=== PATIENT | male | born 1975 | race Caucasian/White ===

== ENCOUNTER 2023-09-13 15:53 | Emergency (ER) | payer MEDICARE, MEDICAID, SELFPAY ==
[2023-09-13 15:53] VITALS: BP 140/88; PULSE 98; RESP 17; TEMP 36.9; O2SAT 97; BMI 28.8
--- NOTE | 2023-09-13 16:25 | ED.VIS.BACK ---
HPI History of Present Illness Chief Complaint: Back Informant: patient Onset/Context/Timing Onset: Yesterday Context: Gradual Onset Chronic pain exacerbated by: Laying on the floor Timing: Continuous Quality: Sharp and - (Pressure) Location: Lumbar, Buttock, Right Leg and Left Leg Worsened by: improves with Ambulation Relieved by: Nothing Associated Symptoms Associated Symptoms: Numbness, Tingling, Radiation to Right Leg and Radiation to Left Leg; Negative for Fever, Abdominal Pain, Dysuria, Unable to Ambulate, Unable to Transfer, Urinary Retention, Urinary Incontinence, Constipation or Fecal Incontinence Narrative Narrative: Patient presents with back pain that began yesterday. Patient has a history of chronic back pain. Patient states he sees pain management in [place]. Patient states he got into an argument with his girlfriend and stated his brother's house. Patient states that he had to sleep on the floor while he was there. Patient states he woke up yesterday morning and the pain was in his back. Patient states it has been constant. Patient describes the pain as sharp and pressure. Patient states the pain is over the lower lumbar area and radiates into his hips and proximal thighs. Patient states it is worse with ambulation. Patient admits to some numbness and tingling into his feet. Patient states this is chronic. Patient denies any bowel or bladder changes. Patient denies any saddle anesthesia. [facility] Medical History Major depressive disorder Generalized anxiety disorder PTSD (post-traumatic stress disorder) History of open sigmoidectomy Herniated disc Diverticulitis Allergy/AdvReac Type Severity Reaction Status Date / Time No Known Allergies Allergy Verified 09/13/23 15:54 Surgical History History of cholecystectomy Social History Smoking Status: Current every day smoker tobacco type: cigarettes ROS ROS ED Constitutional Constitutional ED: Denies chills or fever(s) Eyes Eyes: Denies blurry vision or change in vision ENT ENT ED: Denies rhinorrhea or sore throat Cardiovascular Cardiovascular: Denies chest pain or palpitations Respiratory/Chest Respiratory/Chest: Denies cough or dyspnea Gastrointestinal Gastrointestinal: Denies nausea or vomiting Genitourinary Genitourinary ED: Denies dysuria or hematuria Musculoskeletal Musculoskeletal: Reports back pain; Denies neck pain Integumentary Denies abscess or rash Neurologic Neurologic: Denies headache(s) or weakness Allergic/Immunologic Allergic/Immunologic ED: Denies mouth swelling or urticaria EXAM Physical Exam Const Vital Signs: 09/13/23 15:53 Temperature 98.4 F Temperature Source Temporal Pulse Rate 98 Respiratory Rate 17 Blood Pressure 140/88 H Blood Pressure Mean 105 Pulse Ox 97 Oxygen Delivery Method Room Air Positive well nourished and well developed General Appearance ED: well developed and NAD HEENT Reports moist mucous membranes Neck supple and no JVD Back/Spine Back/Spine Narrative: There is tenderness over the lower lumbar spine and paraspinal muscles. There is no bony crepitance or step-off noted. Range of motion was limited in all motions of the lumbar spine secondary to pain. Straight leg raises were negative bilaterally. Strength is 5/5 bilateral in the lower extremities. There are no sensory deficits noted. Lumbar Spine / Lower Back: ROM limited and straight leg raise negative bilaterally Extremity normal to inspection Neuro oriented x3 and no sensory deficits noted Sensorium / Orientation: alert Motor Exam: strength 5/5 throughout Psych mental status grossly normal MDM MDM MDM Narrative Medical decision making narrative: Patient was advised that this is most likely exacerbation of his chronic pain. Patient was given injection of morphine here. Patient was instructed to follow-up with his pain management physician in 3 to 5 days. Patient was instructed to return if worse in any way. Patient understood and was agreeable with the plan. All questions were answered. Discharge Plan Triage Chief Complaint: Back ED Provider: Korey Monet Dx/Rx/DC Orders Clinical Impression: Acute exacerbation of chronic low back pain, Tobacco use disorder Instructions: ED Back Pain (Acute or Chronic) Primary Care Provider: Kendra Nicole,Out of Referrals: Kendra Nicole,Out of [Primary Care Provider] - 3-5 Days Print Language: Uzbek Disposition Disposition: Home, Self Care
[2023-09-13] MEDS: Morphine 4 MG/ML Syringe IM (16:40)
[2023-09-13] MEDS: predniSONE 20 MG Tablet 60 MG PO (16:41)
--- NOTE | 2023-09-13 16:47 | ED.RN ---
PT STATES NOT SURE IF HE CAN SIT AT SIDE OF BED FOR IM INJECTION. PT HELPED TO SIDE OF BED. PT REQUESTED STEROIDS TO ALSO BE GIVEN. ORDER RECEIVED FOR PREDNISONE 60 MG. THIS RN LEAVES ROOM SHE INSTRUCTS PT THAT RIDE MUST BE PRESENT IN THE ROOM. PT REQUESTS PERCOCET FOR HOME USE. PT TOLD HE NEEDS TO FOLLOW UP WITH PAIN MANAGEMENT PHYSICIAN FOR THAT. UPON LEAVING ROOM PT OBSERVED UP IN THE ROOM, WALKING AND BENDING OVER TO DONOR TECHNICIAN BELONGINGS.PT NOT USING CANE. PT COMES TO HALLWAY TO USE BATHROOM AND IS OBSERVED WALKING WITH CANE WITH DIFFICULTY
[2023-09-13 17:02] VITALS: BP 138/78; PULSE 81; RESP 14; TEMP 36.6; O2SAT 99
== END 2023-09-13 17:03 | disposition home or self-care (01) ==
PROVIDERS: Emergency Provider Emergency Medicine; PCP Family Medicine; Visit Provider Emergency Medicine
DX: G89.29 Other chronic pain (principal); M54.50 Low back pain, unspecified; F17.210 Nicotine dependence, cigarettes, uncomplicated; Z90.49 Acquired absence of other specified parts of digestive tract
CPT/HCPCS: 96372; 99282

== ENCOUNTER 2023-09-28 12:26 | Emergency (ER) | payer MEDICARE, MEDICAID, SELFPAY ==
[2023-09-28 12:27] VITALS: BP 131/91; PULSE 94; RESP 16; TEMP 35.8; O2SAT 100; O2SAT 92
[2023-09-28 12:29] VITALS: BMI 28.8
--- NOTE | 2023-09-28 12:47 | CT_ITS ---
INDICATION: Pain- PLEASE COMMENT ON LUMBAR SPINE. EXAMINATION: CT ABDOMEN AND PELVIS WITHOUT CONTRAST - CT Abdomen And Pelvis W/O Contrast Injection TECHNIQUE: Helically acquired images were obtained of the abdomen and pelvis without oral or IV contrast. The protocol utilizes one or more of the following dose reduction techniques: automated exposure control, adjustment of mA and/or kV according to patient size,and/or use of iterative reconstruction technique. IV Contrast dosage and agent: None. Oral contrast: None. RADIATION DOSAGE (If Supplied By Facility): CTDIvol = ( 10.59 ) mGy, DLP = ( 558.05 ) mGycm COMPARISON: No relevant prior comparison study available FINDINGS: LOWER CHEST: Lung bases are clear. No cardiomegaly or pericardial effusion. The lack of intravenous contrast limits evaluation of solid visceral organs. LIVER: The liver is diffusely low in attenuation consistent with fatty infiltration. There is hepatomegaly. No focal mass. GALLBLADDER AND BILIARY TREE: There are surgical clips within the gallbladder fossa consistent with prior cholecystectomy. No intra- or extrahepatic biliary ductal dilation. PANCREAS: No focal cystic or solid mass. SPLEEN: There is splenomegaly. ADRENAL GLANDS: No nodules. KIDNEYS AND URETERS: Normal renal size and position. There are nonobstructing bilateral renal calculi measuring up to 4 mm on the left. No hydronephrosis. PERITONEUM: No ascites or free air. No other fluid collection. BOWEL: No evidence of acute appendicitis. No stomach or bowel distension. There are diverticula arising from the colon. There are postsurgical changes of the sigmoid colon. No focal inflammatory change. LYMPH NODES: No enlarged mesenteric or retroperitoneal lymph nodes. VESSELS: Aorta is non-dilated. There are peripheral calcifications of the abdominal aorta. URINARY BLADDER: Unremarkable. REPRODUCTIVE ORGANS: No pelvic masses. ABDOMINAL WALL: There are postsurgical changes of the anterior abdominal wall. BONES: There is a round sclerotic focus within the L4 vertebral body. The lumbar vertebral body heights are preserved. The alignment is within normal limits. No acute fracture nor dislocation is visualized. CT/Abdomen/Pelvis without Cont IMPRESSION: Fatty infiltration of the liver. Hepatosplenomegaly. Bilateral nonobstructing renal calculi measuring up to 4 mm on the left. Colonic diverticulosis. Indeterminant sclerotic focus within the L4 vertebral body, may reflect a bone island; if there is a history of malignancy or focal pain recommend bone scan for further characterization. Electronically Signed: Estefany Gomez MD at 13:47 EDT ,
[2023-09-28] MEDS: Ketorolac 15 MG/ML Vial IV (13:04)
[2023-09-28] MEDS: HYDROmorphone 1 MG/ML Syringe 0.5 MG IV (13:04)
[2023-09-28] MEDS: Ondansetron 4 MG/2 ML Vial IV (13:04)
[2023-09-28] MEDS: 0.9% Normal Saline (1000mL) 1,000 ML 999 ML IV (13:05)
--- NOTE | 2023-09-28 13:11 | EX.ED.DYSGE1 ---
HPI <DOREEN Ahn - Last Filed: 09/28/23 14:15> History of Present Illness Chief Complaint: Back Narrative Narrative: Patient is a 48-year-old male with history of chronic back pain chronic neck pain, hypertension who presents to the emergency department for acute on chronic back pain. He was seen here on the for something similar, the exacerbation started when he laid on his brother's floor to sleep. Patient sees Dr. Devlin in pain management [place] secondary to living out that way, he recently moved here 1 month ago. Patient states that he had a ultrasound-guided ablation on 09/18/2023, this did happen 18 months ago and he got improvement however this time he did not have improvement. Patient states the pain is getting worse, she is having difficulty denies any fever or chills, [place] any bowel or bladder incontinence. <Dr. Sharan Silveira DO - Last Filed: 09/28/23 14:51> Narrative Narrative: Patient is a 48-year-old male with history of chronic back pain chronic neck pain, hypertension who presents to the emergency department for acute on chronic back pain. He was seen here on the for something similar, the exacerbation started when he laid on his brother's floor to sleep. Patient sees Dr. Devlin in pain management [place] secondary to living out that way, he recently moved here 1 month ago. Patient states that he had a ultrasound-guided ablation on 09/18/2023, this did happen 18 months ago and he got improvement however this time he did not have improvement. Patient states the pain is getting worse, she is having difficulty denies any fever or chills, denies any bowel or bladder incontinence. PFSH <DOREEN Ahn - Last Filed: 09/28/23 14:15> [facility] Medical History Major depressive disorder Generalized anxiety disorder PTSD (post-traumatic stress disorder) History of open sigmoidectomy Herniated disc Diverticulitis Allergy/AdvReac Type Severity Reaction Status Date / Time No Known Allergies Allergy Verified 09/28/23 12:27 Surgical History History of cholecystectomy Social History Smoking Status: Current every day smoker tobacco type: cigarettes ROS <DOREEN Ahn - Last Filed: 09/28/23 14:15> ROS ED ROS Narrative Constitutional: Negative for fever, chills, weight loss, weakness Eyes: Negative for vision loss, vision change, double vision ENT: Negative for any sore throat, ear pain, congestion Cardiovascular: Negative for any chest pain, tightness, palpitations Respiratory: Negative for any cough, sputum production, hemoptysis, dyspnea, dyspnea on exertion, orthopnea Gastrointestinal: Negative for any abdominal pain, nausea, vomiting, diarrhea, constipation, blood in stool, blood in vomit : Negative for any urinary frequency, dysuria, retention, blood in urine Muscle skeletal: Negative for any neck pain. Positive chronic back pain, worsening with bending, ambulating Neurological: Negative for any headache, syncope, dizziness Skin: Negative for any rashes, itching, abrasions, lacerations Psychiatric: Negative for any depression, anxiety, stress, suicidal ideation, homicidal ideation Hematologic: Negative for any excessive bruising, easy bleeding EXAM <DOREEN Ahn - Last Filed: 09/28/23 14:15> Physical Exam Narrative Exam Narrative: Vital signs reviewed. Patient at rest does not appear to be in any discomfort. Patient had his legs crossed. HEET: Head normocephalic atraumatic, TMs clear bilaterally. Posterior pharynx is clear, moist mucous membranes. Nares clear bilaterally. Neck: Supple with no lymphadenopathy or tenderness. No signs of meningismus. Cardiac: Regular rate and rhythm no murmurs gallops or rubs, equal peripheral pulses bilaterally. Respiratory: Lungs clear to auscultation bilaterally. No chest tenderness. Abdomen: Soft, nontender, nondistended. No abdominal bruit or pulsatile masses. No hepatosplenomegaly Extremities: No peripheral edema, no signs of gross trauma or deformity. Active full range of motion of all extremities. Patient was ambulatory with a cane. Equal strength bilateral lower extremities. Most the pain comes up with sitting up and turning. Pain to the lower lumbar spine. This is where the pain is most the time. He says every now and then does get shooting down to his legs. Neuro: Cranial nerves II through XII intact, no focal neurological deficits. Skin: Clean dry and intact with no rash, purpura, petechiae, vesicles or pustules. Backs/flank: No CVA tenderness, no midline spinal tenderness, no deformity. Psych: Normal mood and affect. No SI, HI or acute psychosis. Const Vital Signs: 09/28/23 12:27 09/28/23 12:27 09/28/23 14:00 Temperature 96.5 F L 98.6 F Temperature Source Temporal Pulse Rate 94 94 64 Respiratory Rate 16 16 18 Blood Pressure 131/91 H 131/91 H 124/78 H Blood Pressure Mean 104 104 93 Pulse Ox 92 100 99 Oxygen Delivery Method Room Air Room Air <Dr. Sharan Silveira DO - Last Filed: 09/28/23 14:51> Physical Exam Const Vital Signs: 09/28/23 12:27 09/28/23 12:27 09/28/23 14:00 Temperature 96.5 F L 98.6 F Temperature Source Temporal Pulse Rate 94 94 64 Respiratory Rate 16 16 18 Blood Pressure 131/91 H 131/91 H 124/78 H Blood Pressure Mean 104 104 93 Pulse Ox 92 100 99 Oxygen Delivery Method Room Air Room Air [facility] <DOREEN Ahn - Last Filed: 09/28/23 14:15> [facility] Lab Data Labs: Laboratory Results - last 24 hr 09/28/23 13:13 WBC 12.4 H RBC 4.82 Hgb 16.1 Hct 46.9 MCV 97.3 H MCH 33.4 H MCHC 34.3 RDW Std Deviation 45.5 H RDW Coeff of Rachel 12.8 Plt Count 166 MPV 11.0 Immature Gran % (Auto) 2.700 H Neut % (Auto) 75.7 H Lymph % (Auto) 13.5 L Hettinger % (Auto) 6.6 Eos % (Auto) 0.4 Baso % (Auto) 1.1 H Absolute Neuts (auto) 9.4 H Absolute Lymphs (auto) 1.68 Nucleated RBC % 0 Sodium 139 Potassium 3.6 Chloride 109 H Carbon Dioxide 23.0 Anion Gap 7 BUN 10 Creatinine 1.09 Estim Creat Clear Calc 95.89 Est GFR (MDRD) Af Amer 93 Est GFR (MDRD) Non-Af 76 BUN/Creatinine Ratio 9.2 L Glucose 129 H Calcium 8.8 Urine Color Yellow Urine Clarity Clear Urine pH 6.0 Ur Specific [place] 1.020 Urine Protein 15 H Urine Glucose (UA) Normal Urine Ketones Negative Urine Occult Blood 10 H Urine Nitrite Negative Urine Bilirubin Negative Urine Urobilinogen 1 H Ur Leukocyte Esterase 25 H Urine RBC 0 SEEN Urine WBC 0 SEEN Ur Squamous Epith Cells 0 SEEN Urine Bacteria RARE Urine Mucus 0 SEEN Radiography Diagnostic Testing: Clinical Impression(s) from Imaging Studies Abdomen/Pelvis CT 09/28/23 12:47 IMPRESSION: Fatty infiltration of the liver. Hepatosplenomegaly. Bilateral nonobstructing renal calculi measuring up to 4 mm on the left. Colonic diverticulosis. Indeterminant sclerotic focus within the L4 vertebral body, may reflect a bone island; if there is a history of malignancy or focal pain recommend bone scan for further characterization. Electronically Signed: Estefany Gomez MD at 13:47 EDT , Treatment and Re-Evaluation :: Differential diagnosis includes however is not limited to: Cauda equina, spinal abscess, acute on chronic back pain, worsening protrusion of the lumbar disc, lumbar strain Patient appears to be in no obvious respiratory distress vital signs are stable, patient is nontoxic-appearing. I spoke with the patient at length. The patient would like more workup today. He was seen here 15 days ago only receiving pain medicine. Patient states he like some laboratory work he is also concerned about his abdomen, he does have history of kidney stones and he is wondering what could cause this pain. Patient will receive IV fluids, Toradol and Zofran and 0.[address] scan of the ab pelvis out contrast. Laboratory eval as well as urinalysis. He will be reevaluated. All radiologic examinations were read, reviewed by the emergency department attending. From these reads, a plan of care will be put in place. Patient has no fever or chills. Patient's pain has been ongoing, is not worse since the procedure. Patient CBC shows a slight leukocytosis white blood 12.4. Patient's chemistries were unremarkable, patient CT scan of the abdomen pelvis shows nonobstructing kidney stones, colonic diverticulosis, indeterminate sclerotic focus within the L4 vertebral body. They reflect a bony island. At this time, I do believe the patient stable for discharge. Patient be given a dose of Percocet and will follow-up outpatient with his painter and body mechanic apprentice. He is happy with the plan of care, all questions were answered, stable for discharge. <Dr. hSaran Silveira, DO - Last Filed: 09/28/23 14:51> [facility] Lab Data Labs: Laboratory Results - last 24 hr 09/28/23 13:13 WBC 12.4 H RBC 4.82 Hgb 16.1 Hct 46.9 MCV 97.3 H MCH 33.4 H MCHC 34.3 RDW Std Deviation 45.5 H RDW Coeff of Rachel 12.8 Plt Count 166 MPV 11.0 Immature Gran % (Auto) 2.700 H Neut % (Auto) 75.7 H Lymph % (Auto) 13.5 L [place] % (Auto) 6.6 Eos % (Auto) 0.4 Baso % (Auto) 1.1 H Absolute Neuts (auto) 9.4 H Absolute Lymphs (auto) 1.68 Nucleated RBC % 0 Sodium 139 Potassium 3.6 Chloride 109 H Carbon Dioxide 23.0 Anion Gap 7 BUN 10 Creatinine 1.09 Estim Creat Clear Calc 95.89 Est GFR (MDRD) Af Amer 93 Est GFR (MDRD) Non-Af 76 BUN/Creatinine Ratio 9.2 L Glucose 129 H Calcium 8.8 Urine Color Yellow Urine Clarity Clear Urine pH 6.0 Ur Specific [place] 1.020 Urine Protein 15 H Urine Glucose (UA) Normal Urine Ketones Negative Urine Occult Blood 10 H Urine Nitrite Negative Urine Bilirubin Negative Urine Urobilinogen 1 H Ur Leukocyte Esterase 25 H Urine RBC 0 SEEN Urine WBC 0 SEEN Ur Squamous Epith Cells 0 SEEN Urine Bacteria RARE Urine Mucus 0 SEEN Radiography Diagnostic Testing: Clinical Impression(s) from Imaging Studies Abdomen/Pelvis CT 09/28/23 12:47 IMPRESSION: Fatty infiltration of the liver. Hepatosplenomegaly. Bilateral nonobstructing renal calculi measuring up to 4 mm on the left. Colonic diverticulosis. Indeterminant sclerotic focus within the L4 vertebral body, may reflect a bone island; if there is a history of malignancy or focal pain recommend bone scan for further characterization. Electronically Signed: Estefany Gomez MD at 13:47 EDT , Treatment and Re-Evaluation :: Differential diagnosis includes however is not limited to: Cauda equina, spinal abscess, acute on chronic back pain, worsening protrusion of the lumbar disc, lumbar strain Patient appears to be in no obvious respiratory distress vital signs are stable, patient is nontoxic-appearing. I spoke with the patient at length. The patient would like more workup today. He was seen here 15 days ago only receiving pain medicine. Patient states he like some laboratory work he is also concerned about his abdomen, he does have history of kidney stones and he is wondering what could cause this pain. Patient will receive IV fluids, Toradol and Zofran and 0.[address] scan of the ab pelvis out contrast. Laboratory eval as well as urinalysis. He will be reevaluated. All radiologic examinations were read, reviewed by the emergency department attending. From these reads, a plan of care will be put in place. Patient has no fever or chills. Patient's pain has been ongoing, is not worse since the procedure. Patient CBC shows a slight leukocytosis white blood 12.4. Patient's chemistries were unremarkable, patient CT scan of the abdomen pelvis shows nonobstructing kidney stones, colonic diverticulosis, indeterminate sclerotic focus within the L4 vertebral body. They reflect a bony island. At this time, I do believe the patient stable for discharge. Patient be given a dose of Percocet and will follow-up outpatient with his painter and body mechanic apprentice. He is happy with the plan of care, all questions were answered, stable for discharge. This patient was seen with a PA/PSYCHOLOGY LECTURER Individually assessed they patient including history and physical. I have reviewed everything on the chart that is available and agree with the documentation provided by the PA/PSYCHOLOGY LECTURER including discussion about the assessment, treatment plan, discussion, and return precautions. 28-year-old male presenting with back pain. This is acute on chronic. I do not believe he has any symptoms consistent with cauda equina syndrome or infectious etiology. Parent states he was in a verbal altercation with his girlfriend and was trying to be escalated so he went to his brother's house where he slept on the floor. He states this is what exacerbated this pain. Patient does have a pain management physician that he sees (Dr. Jimenez) patient medicated with IV fluids, Toradol, Dilaudid. He is concerned about this not being primarily spinal problem as he has history of diverticulitis and surgeries in the past. He wants to make sure he does not a kidney stone as well. Lab work was obtained and he has a slight leukocytosis 12.4 however the rest of his labs look normal. Discussed with patient at length I recommendation to follow-up with his pain management physician. Prior he was given oxycodone prior to discharge. He will follow-up with his pain management physician. Discharge Plan Triage Chief Complaint: Back ED Midlevel Provider: Blanco Cotter ED Provider: Sharan Silveira Dx/Rx/DC Orders Clinical Impression: Acute exacerbation of chronic low back pain Instructions: Back Basics: A Healthy Spine, Understanding Chronic Pain Primary Care Provider: Yovany Lawson Referrals: Yovany Lawson MD [Primary Care Provider] - Activity Restrictions/Additional Instructions: Please follow-up with your painter and body mechanic apprentice Print Language: Welsh Disposition Disposition: Home, Self Care Discharge Date/Time: 09/28/23 14:24
[2023-09-28 13:18] LABS: Mucous, Urine 0 SEEN /hpf (<or=2+); Red Blood Cells-Urine 0 SEEN /hpf (0-5); Squamous Epithelial Cells - UA 0 SEEN /hpf (0-5); White Blood Cells 0 SEEN /hpf (0-5)
[2023-09-28 13:21] LABS: Absolute Lymphocyte Count 1.68 X10^3/uL (0.83-4.51); Absolute Neutrophil Count 9.4 X10^3/uL (2.0-7.7); Basophil# 0.14 X10^3/uL; Basophil% 1.1 % (0-1); Color, Urine Yellow (Yellow); Eosinophil# 0.05 X10^3/uL; Eosinophils% 0.4 % (0-5); Glucose, Dipstick Normal (Normal); Hematocrit 46.9 % (40-54); Hemoglobin 16.1 g/dL (13.0-16.5); Ketone-Dipstick Negative (Negative); Leukocyte Esterase-Dipstick 25 /ul (Negative); Lymphocyte # 1.68 X10^3/ul (0.83-4.51); Lymphocyte % 13.5 % (19-41); Mean Corp Hgb Conc 34.3 g/dL (32-36); Mean Corpuscular Hgb 33.4 pg (27.0-32.0); Mean Corpuscular Volume 97.3 fL (80-94); Monocyte# 0.82 X10^3/uL; Monocyte% 6.6 % (0-10); NRBC Flagged by Analyzer 0 % (0-5); Neutrophil # 9.37 X10^3/uL (2.7-7.7); Neutrophil % 75.7 % (47-70); Nitrite-Dipstick Negative (Negative); Occult Blood-Urine 10 /ul (Negative); Platelet Count 166 K/mm3 (150-450); Protein-Dipstick 15 mg/dl (Negative); RBC Distribution Width CV 12.8 % (11.6-14.6); RBC Distribution Width SD 45.5 fl (35.1-43.9); Red Blood Count 4.82 M/mm3 (4.6-6.2); Urine Bilirubin Dipstick Negative (Negative); Urine Clarity Clear (Clear); Urine Urobilinogen 1 mg/dl (Normal); White Blood Count 12.4 K/mm3 (4.4-11.0)
[2023-09-28 13:28] LABS: Bacteria RARE /hpf (None Seen)
[2023-09-28 13:32] LABS: Anion Gap 7 (5-15); BUN 10 mg/dL (7-18); BUN/Creat Ratio 9.2 RATIO (10-20); Calcium,Total 8.8 mg/dL (8.5-10.1); Chloride 109 mmol/L (98-107); Creatinine, Serum 1.09 mg/dL (0.70-1.30); EST Glomerular Filtration Rate 76 mL/min (>60); Est Glom Filt Rate - Afr Amer 93 mL/min (>60); Estimated Creatinine Clearance 95.89 ml/min; Glucose 129 mg/dL (74-106); Potassium 3.6 mmol/L (3.5-5.1); Sodium Level 139 mmol/L (136-145)
[2023-09-28 14:00] VITALS: BP 124/78; PULSE 64; RESP 18; TEMP 37; O2SAT 99
[2023-09-28] MEDS: oxyCODONE 5 MG Tablet PO (14:22)
== END 2023-09-28 14:24 | disposition home or self-care (01) ==
PROVIDERS: Nurse Practitioner; Emergency Provider Student in an Organized Health Care Education/Training Program; PCP Family Medicine; Visit Provider Student in an Organized Health Care Education/Training Program
DX: M54.50 Low back pain, unspecified (principal); I10 Essential (primary) hypertension; F17.210 Nicotine dependence, cigarettes, uncomplicated; G89.29 Other chronic pain
CPT/HCPCS: 74176; 80048; 81001; 85025; 99284; J7030; A4216; J2405

== ENCOUNTER 2023-11-19 21:05 | Observation (INO) | payer MEDICARE, MEDICAID, SELFPAY ==
[2023-11-19 21:07] VITALS: BP 99/63; PULSE 102; RESP 18; TEMP 36.9; O2SAT 95; BMI 27.8
--- NOTE | 2023-11-19 22:13 | CT_ITS ---
EXAM: CT HEAD WITHOUT INTRAVENOUS CONTRAST CLINICAL INDICATION: Slurred speech TECHNIQUE: Multiple axial images were obtained of the head without intravenous contrast. This CT exam was performed using one or more of the following dose reduction techniques: automated exposure control, adjustment of the mA and/or kV according to patient size, and/or use of iterative reconstruction technique. COMPARISON: No relevant prior studies available. FINDINGS: BRAIN AND EXTRA-AXIAL SPACES: No significant abnormality. No intra- or extra-axial hemorrhage. No evidence of acute infarct. No intracranial mass or mass effect. There is preservation of the colón/white matter interface. Ventricles are appropriate for age. Basal cisterns are patent. BONES/JOINTS: No significant abnormality. No discrete lytic or blastic abnormalities. SINUSES: No significant findings. MASTOID AIR CELLS: No significant effusion. ORBITS: No acute findings. CT/Brain/Head without Contrast IMPRESSION: Negative head/brain CT without intravenous contrast. Electronically Signed: Jack Almaguer DO at 23:30 EDT ,
--- NOTE | 2023-11-19 22:13 | EKG12_ITS ---
Test Reason : GEN ILL Blood Pressure : / mmHG Vent. Rate : 084 BPM Atrial Rate : 084 BPM P-R Int : 202 ms QRS Dur : 106 ms QT Int : 368 ms P-R-T Axes : 039 036 034 degrees QTc Int : 434 ms Normal sinus rhythm Normal ECG Confirmed by ANASTACIO BENITEZ, YU ([id number]), content editor SAMIA GOLDSTEIN ([id number]) on 11/21/2023 6:49:58 AM Referred By: Confirmed By:JUANY CHAVES MD
--- NOTE | 2023-11-19 22:15 | EX.ED.DYSGE1 ---
HPI History of Present Illness Chief Complaint: General Illness Narrative Narrative: 48-year-old male presents with slurred speech and drowsiness since 830 this evening. He is near syncopal. According to his significant other, he has chronic back pain and is on a Duragesic patch as well as takes medical marijuana. Around 830 this evening she thought that he told her to call the ambulance. He started slurring his speech and feeling very drowsy and was near syncopal. She wanted to take him to the hospital, but he was refusing. He denies any headache, no paresthesias, no other symptoms. No recent nausea or vomiting, no diarrhea. No fevers or chills. When this continued, she called the ambulance and he presents because of the slurred speech and drowsiness. [facility] Medical History Major depressive disorder Generalized anxiety disorder PTSD (post-traumatic stress disorder) History of open sigmoidectomy Herniated disc Diverticulitis Home Medications ?Medication ?Instructions ?Recorded ?Last Taken ?Type buprenorphine 5 mcg/hour weekly 1 patch topical QWEEK 11/20/23 Unknown History transdermal patch (Butrans) fenofibrate 160 mg tablet 160 mg PO DAILY 11/20/23 Unknown History fluoxetine 20 mg capsule 20 mg PO DAILY 11/20/23 Unknown History omeprazole 40 mg capsule,delayed 40 mg PO DAILY 11/20/23 Unknown History release ondansetron HCl 4 mg tablet 4 mg PO DAILY PRN nausea 11/20/23 Unknown History quetiapine 100 mg tablet 100 mg PO QHS 11/20/23 Unknown History quetiapine 25 mg tablet 25 mg PO QHS 11/20/23 Unknown History tamsulosin 0.4 mg capsule 0.4 mg PO DAILY 11/20/23 Unknown History Allergy/AdvReac Type Severity Reaction Status Date / Time No Known Allergies Allergy Verified 11/19/23 21:09 Surgical History History of cholecystectomy Social History household members: family 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 HEENT: No sore throat. No neck pain. No loss of vision. No rhinorrhea. Cardiovascular: No chest pain. No palpitations. No pedal edema. Respiratory: No cough, no shortness of breath. Abdominal: No abdominal pain. No nausea. No vomiting. Genitourinary: No dysuria. No hematuria. Musculoskeletal: No myalgias. No arthralgias. Neurologic: No headaches. No dizziness. No lightheadedness. Slurred speech. Drowsiness. Skin: No rash. No change in color. Psychiatric: No depression. No anxiety. EXAM Physical Exam Narrative Exam Narrative: Afebrile. Vital signs noted. HEENT: Normocephalic. Atraumatic. PERRL, EOMI. Neck soft and supple. No point tenderness or step off. Positive dry mouth. Cardiovascular: Regular rate and rhythm. No murmurs, rubs, or gallops appreciated. Respiratory: No tachypnea. Lungs clear to auscultation bilaterally. Gastrointestinal: Abdomen soft, nontender, with normoactive bowel sounds. No rebound or guarding. Neurological: Awake. Alert. Nonfocal, nonlateralizing. NIH stroke scale of 1 for mild slurred speech. Skin: No rash. Normal color. No pallor. Musculoskeletal: No pedal edema. Full range of motion extremities. Const Vital Signs: 11/19/23 21:07 11/19/23 21:38 11/19/23 23:07 Temperature 98.4 F Temperature Source Temporal Pulse Rate 102 H Respiratory Rate 18 16 Respiratory Effort Normal Respiratory Pattern Normal Blood Pressure 99/63 Blood Pressure Mean 75 Pulse Ox 95 Oxygen Delivery Method Room Air 11/20/23 00:32 11/20/23 01:00 Temperature 97.8 F Temperature Source Pulse Rate 79 69 Respiratory Rate 18 18 Respiratory Effort Respiratory Pattern Blood Pressure 96/71 91/70 Blood Pressure Mean 79 77 Pulse Ox 94 95 Oxygen Delivery Method Room Air MDM MDM MDM Narrative Medical decision making narrative: I do not feel that stroke team is indicated, as I think that this may be more medication side effect which is also in the differential. His exam is otherwise nonfocal. CT of the brain will be obtained as well as basic laboratory work and urine drug screen. As I think this is more medication side effect, I do not feel that stroke team needs to be initiated. Additionally, he is not a TNK candidate because I do not feel he has a debilitating deficit. I reviewed his laboratory work and he has normal white count of 6.9, hemoglobin normal at 15.1, hematocrit 44.0, platelet count 190. Electrolyte panel shows chloride elevated at 109 which I think is nonspecific, normal BUN of 9 and creatinine 1.26, glucose appropriately elevated at 121 with normal anion gap of 7. LFTs are grossly unremarkable. Urinalysis is negative for infection. I do not feel antibiotics are indicated. Urine for drugs of abuse is positive for cannabinoids which she admits to taking. Ethyl alcohol is negative. CT of the brain shows no acute process on the radiology report that I reviewed. Repeat examination shows that he is more awake but slightly slurring his speech. There is no facial droop. Once again, I do not feel that this is strokelike and I think is probably more medication side effect. In discussion with the patient, he took his usual dose of 2 Gummies of THC for pain. I feel that his slurred speech and drowsiness may be secondary to his combination of Duragesic patch and the fact that the Gummies are not necessarily regulated so he may have gotten an accidental overdose of THC. Hence, I do not feel that CTA of the head and neck is indicated. I discussed the patient with Dr. Velasco who will observe the patient on the medical surgical floor. Disposition is assigned observation. Patient is in stable condition. History & Record Review Discussion w/independent historian: Patient and Significant other Lab Data Attestation: I reviewed the patient's lab results. Labs: Laboratory Results - last 24 hr 11/19/23 11/19/23 21:15 22:30 WBC 6.9 RBC 4.62 Hgb 15.1 Hct 44.0 MCV 95.2 H MCH 32.7 H MCHC 34.3 RDW Std Deviation 44.0 H RDW Coeff of Rachel 12.7 Plt Count 190 MPV 11.1 Immature Gran % (Auto) 0.700 Neut % (Auto) 65.9 Lymph % (Auto) 22.6 [place] % (Auto) 5.9 Eos % (Auto) 3.5 Baso % (Auto) 1.4 H Absolute Neuts (auto) 4.5 Absolute Lymphs (auto) 1.56 Nucleated RBC % 0 Sodium 139 Potassium 3.8 Chloride 109 H Carbon Dioxide 23.0 Anion Gap 7 BUN 9 Creatinine 1.26 Estim Creat Clear Calc 81.72 Est GFR (MDRD) Af Amer 78 Est GFR (MDRD) Non-Af 65 BUN/Creatinine Ratio 7.1 L Glucose 121 H Calcium 9.0 Total Bilirubin 0.60 AST 27 ALT 50 Alkaline Phosphatase 61 Troponin I High Sens < 3 L Total Protein 7.2 Albumin 4.1 Globulin 3.1 Albumin/Globulin Ratio 1.3 Urine Color Yellow Urine Clarity Clear Urine pH 6.0 Ur Specific [place] 1.020 Urine Protein 15 H Urine Glucose (UA) Normal Urine Ketones Negative Urine Occult Blood Negative Urine Nitrite Negative Urine Bilirubin Negative Urine Urobilinogen 1 H Ur Leukocyte Esterase Negative Urine RBC 0 SEEN Urine WBC 0 SEEN Ur Squamous Epith Cells 0 SEEN Urine Bacteria 0 SEEN Urine Mucus 0 SEEN Urine Opiates Screen NEGATIVE Urine Methadone Screen NEGATIVE Ur Barbiturates Screen NEGATIVE Ur Phencyclidine Scrn NEGATIVE Ur Amphetamines Screen NEGATIVE MDMA (Ecstasy) Screen NEGATIVE U Benzodiazepines Scrn NEGATIVE Urine Cocaine Screen NEGATIVE U Cannabinoids Screen POSITIVE H Ur Drug Screen Comment Ethyl Alcohol < 3.0 Radiography Diagnostic Testing: Clinical Impression(s) from Imaging Studies Brain CT 11/19/23 22:13 IMPRESSION: Negative head/brain CT without intravenous contrast. Electronically Signed: Jack Almaguer DO at 23:30 EDT , Chest X-Ray 11/19/23 23:10 IMPRESSION: Bibasilar pulmonary opacities may be atelectasis or pneumonia. Electronically Signed: Jack Almaguer DO at 23:25 EDT , Discharge Plan Dx/Rx/DC Orders Clinical Impression: Slurred speech, Drowsiness, Medication side effects Disposition Disposition: Acute Care [facility]
[2023-11-19] MEDS: 0.9% Normal Saline (1000mL) 1,000 ML 1000 ML IV (22:24)
[2023-11-19 22:28] LABS: Absolute Lymphocyte Count 1.56 X10^3/uL (0.83-4.51); Absolute Neutrophil Count 4.5 X10^3/uL (2.0-7.7); Basophil% 1.4 % (0-1); Eosinophil# 0.24 X10^3/uL; Eosinophils% 3.5 % (0-5); Hemoglobin 15.1 g/dL (13.0-16.5); Lymphocyte # 1.56 X10^3/ul (0.83-4.51); Lymphocyte % 22.6 % (19-41); Mean Corp Hgb Conc 34.3 g/dL (32-36); Mean Corpuscular Hgb 32.7 pg (27.0-32.0); Mean Corpuscular Volume 95.2 fL (80-94); Mean Platelet Vol. 11.1 fl (6.2-12.0); Monocyte# 0.41 X10^3/uL; Monocyte% 5.9 % (0-10); NRBC Flagged by Analyzer 0 % (0-5); Neutrophil # 4.54 X10^3/uL (2.7-7.7); Neutrophil % 65.9 % (47-70); Platelet Count 190 K/mm3 (150-450); RBC Distribution Width CV 12.7 % (11.6-14.6); Red Blood Count 4.62 M/mm3 (4.6-6.2); White Blood Count 6.9 K/mm3 (4.4-11.0)
[2023-11-19 22:48] LABS: ALB/GLOB Ratio 1.3 RATIO (0.9-2.4); AST(SGOT) 27 U/L (15-37); Alanine Aminotransfer ALT/SGPT 50 U/L (16-61); Albumin, Serum 4.1 g/dL (3.2-5.0); Alkaline Phosphatase 61 U/L (45-117); Anion Gap 7 (5-15); BUN 9 mg/dL (7-18); BUN/Creat Ratio 7.1 RATIO (10-20); Chloride 109 mmol/L (98-107); Creatinine, Serum 1.26 mg/dL (0.70-1.30); EST Glomerular Filtration Rate 65 mL/min (>60); Est Glom Filt Rate - Afr Amer 78 mL/min (>60); Estimated Creatinine Clearance 81.72 ml/min; Globulin 3.1 g/dL (2.2-4.2); Glucose 121 mg/dL (74-106); Potassium 3.8 mmol/L (3.5-5.1); Protein, Total 7.2 g/dL (6.4-8.2); Sodium Level 139 mmol/L (136-145); Troponin-I HS < 3 pg/mL (3.0-78.0)
[2023-11-19 22:54] LABS: Bacteria 0 SEEN /hpf (None Seen); Mucous, Urine 0 SEEN /hpf (<or=2+); Red Blood Cells-Urine 0 SEEN /hpf (0-5); Squamous Epithelial Cells - UA 0 SEEN /hpf (0-5); White Blood Cells 0 SEEN /hpf (0-5)
[2023-11-19 22:58] LABS: Alcohol, Blood (Medical)-Serum < 3.0 mg/dL
[2023-11-19 23:07] VITALS: RESP 16
[2023-11-19 23:07] LABS: Color, Urine Yellow (Yellow); Glucose, Dipstick Normal (Normal); Ketone-Dipstick Negative (Negative); Leukocyte Esterase-Dipstick Negative /ul (Negative); Nitrite-Dipstick Negative (Negative); Occult Blood-Urine Negative /ul (Negative); Protein-Dipstick 15 mg/dl (Negative); Urine Bilirubin Dipstick Negative (Negative); Urine Clarity Clear (Clear); Urine Urobilinogen 1 mg/dl (Normal)
--- NOTE | 2023-11-19 23:10 | RAD_ITS ---
EXAM: XR CHEST, 1 VIEW CLINICAL INDICATION: CAD TECHNIQUE: Frontal view of the chest. COMPARISON: No relevant prior studies available. FINDINGS: LUNGS AND PLEURAL SPACES: Bibasilar pulmonary opacities may be atelectasis or pneumonia. No pneumothorax. No effusion. HEART: No significant abnormality. Cardiac silhouette not enlarged. MEDIASTINUM: Central airways and mediastinal contour are unremarkable. BONES/JOINTS: No significant abnormality. No acute fracture. SOFT TISSUES: No significant abnormality. RAD/Chest 1 View (Portable) IMPRESSION: Bibasilar pulmonary opacities may be atelectasis or pneumonia. Electronically Signed: Jack Almaguer DO at 23:25 EDT ,
[2023-11-19 23:15] LABS: Amphetamine Urine VISTA NEGATIVE (<1000 ng/mL); Barbiturate Urine VISTA NEGATIVE (< 200 ng/mL); Benzodiazepine Urine VISTA NEGATIVE (< 200 ng/mL); Cocaine Urine VISTA NEGATIVE (< 300 ng/mL); Ecstacy Urine VISTA NEGATIVE (< 500 ng/mL); Methadone Urine VISTA NEGATIVE (< 300 ng/mL); PCP Urine VISTA NEGATIVE (< 25 ng/mL); THC Urine VISTA POSITIVE (< 50 ng/mL); Vista UDS pH Range 5
[2023-11-20 00:32] VITALS: BP 96/71; PULSE 79; RESP 18; TEMP 36.6; O2SAT 94
[2023-11-20 01:00] VITALS: BP 91/70; PULSE 69; RESP 18; O2SAT 95
--- NOTE | 2023-11-20 01:02 | PCM.HP.STD ---
HPI - General General Date of Admission: 11/20/23 Date of Service: 11/20/23 Chief Complaint: Altered mental status/slurred speech HPI Praveen ESCALANTE, is a 48 M who presented to the emergency department at [facility] on 11/19/2019 for after an episode of acute confusion and slurred speech. 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 He is also on multiple psych medications. He stated about 8 PM he took his medical marijuana which he has been taking for many year and a half and within about 15 minutes of taking the medication he felt very odd. He stated he felt like I was having a heart attack or stroke. His stated that his balance was off some and he was intermittently slurring his words. He does complain of significant dry mouth in the emergency department. He states his medical marijuana dose has not been changed recently. He denied taking any other medications, drinking any alcohol or any other substances. He has never had an event like this previously. At the time of my evaluation he indicated he was feeling almost back to his baseline however his was imminently concerned about the episode and wanted him monitored overnight as she stated it was a very scary event. The patient did state that he saw his psychiatrist today and was actually warned about being on all the medications combined potentially causing adverse reactions. He states this is his last Duragesic patch that he has an overall does not like utilizing opiates for pain relief. Vital signs on presentation showed a temperature of 98.4, heart rate was 102, respiratory rate was 18, blood pressure was 99/63 and pulse ox was 95% on room air. CBC was completely unremarkable. Chemistry panel was completely unremarkable. Troponin was less than 3. Liver function was normal. UA showed mild dehydration but otherwise unremarkable. And his toxicology screen was positive only for opiates as expected. His alcohol level was less than 3. A CT of the brain was performed and showed no acute findings. A chest x-ray was performed and showed bibasilar opacities and on exam he had bibasilar crackles that decreased with deep breathing so I think this is more consistent with atelectasis. EKG showed normal sinus rhythm with normal intervals and no ST-T wave changes concerning for acute ischemia. His symptoms were transient and as stated almost resolved by the time I saw him. He was still complaining of dry mouth which is to be expected with his marijuana use. He was given IV fluids at 1 L in the emergency department. COUNTS INCLUDE 234 BEDS AT THE [facility] Medical History Major depressive disorder Generalized anxiety disorder PTSD (post-traumatic stress disorder) History of open sigmoidectomy Herniated disc Diverticulitis Home Medications ?Medication ?Instructions ?Recorded ?Last Taken ?Type buprenorphine 5 mcg/hour weekly 1 patch topical QWEEK 11/20/23 Unknown History transdermal patch (Butrans) fenofibrate 160 mg tablet 160 mg PO DAILY 11/20/23 Unknown History fluoxetine 20 mg capsule 20 mg PO DAILY 11/20/23 Unknown History omeprazole 40 mg capsule,delayed 40 mg PO DAILY 11/20/23 Unknown History release ondansetron HCl 4 mg tablet 4 mg PO DAILY PRN nausea 11/20/23 Unknown History quetiapine 100 mg tablet 100 mg PO QHS 11/20/23 Unknown History quetiapine 25 mg tablet 25 mg PO QHS 11/20/23 Unknown History tamsulosin 0.4 mg capsule 0.4 mg PO DAILY 11/20/23 Unknown History Allergy/AdvReac Type Severity Reaction Status Date / Time No Known Allergies Allergy Verified 11/19/23 21:09 unable to obtain Surgical History (Updated 11/20/23 @ 01:[address] Rachael Velasco DO) H/O abdominal surgery History of cholecystectomy Social History (Updated 11/20/23 @ 01:[address] 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 Smoking Status: Current every day smoker tobacco type: cigarettes Smoking packs per day: 0.5 Smoking cigarettes per day: 10.0 alcohol intake: never substance use type: marijuana ROS Constitutional Constitutional: Reports fatigue and weakness; Denies anorexia, change in weight, chills, fever(s), malaise, night sweats or other Eyes Eyes: Denies blurry vision, change in eye color, change in vision, discharge from eye(s), double vision, erythema, eye pain, loss of vision or other ENT HEENT: Denies abnormal hearing, dysphagia, ear pain, epistaxis, headache(s), hearing loss, nasal congestion, nasal discharge, post nasal drip, sinus pressure, sore throat or other Cardiovascular Cardiovascular: Denies chest pain, claudication, dyspnea on exertion, edema, lightheadedness, orthopnea, palpitations, paroxysmal nocturnal dyspnea, rapid heart rate, syncope or other Respiratory/Chest Respiratory/Chest: Denies cough, dyspnea, excessive phlegm production, hemoptysis, productive cough, shortness of breath at rest, shortness of breath with exertion, wheezing or other Gastrointestinal Gastrointestinal: Denies abdominal pain, coffee ground emesis, constipation, diarrhea, dyspepsia, hematemesis, hematochezia, loose stools, melena, nausea, vomiting or other Genitourinary Genitourinary: Denies burning urination, difficulty urinating, dysuria, hematuria, nocturia, urinary frequency, urinary hesitancy, urinary incontinence, urinary urgency or other Musculoskeletal Musculoskeletal: Reports back pain and neck pain Neurologic Neurologic: Reports abnormal speech, confusion and disequilibrium; Denies abnormal gait, dizziness, focal weakness, headache(s), numbness, paresthesias, seizure-like activity, seizures, syncope, tingling, tremor(s) or other Psychiatric Psychiatric: Reports anxiety and depression; Denies homicidal ideation, suicidal ideation or other Endocrine Endocrinology: Denies change in body appearance, cold intolerance, excessive sweating, heat intolerance, polydipsia, polyuria or other Hematologic/Lymphatic Hematologic/Lymphatic: Denies anemia, easy bleeding, easy bruising, lymphadenopathy or other Allergic/Immunologic Allergic/Immunologic: Denies rhinitis, hives, eczemia, asthma or other Vital Signs Vital Signs Vital Signs: 11/19/23 21:07 11/19/23 21:38 11/19/23 23:07 Temperature 98.4 F Temperature Source Temporal Pulse Rate 102 H Respiratory Rate 18 16 Respiratory Effort Normal Respiratory Pattern Normal Blood Pressure 99/63 Blood Pressure Mean 75 Pulse Ox 95 Oxygen Delivery Method Room Air 11/20/23 00:32 Temperature 97.8 F Temperature Source Pulse Rate 79 Respiratory Rate 18 Respiratory Effort Respiratory Pattern Blood Pressure 96/71 Blood Pressure Mean 79 Pulse Ox 94 Oxygen Delivery Method Weight Weight: 90.718 kg Body Mass Index (BMI) 27.8 Physical Exam Const alert, oriented x3, no apparent distress and well nourished Constitutional Narrative: Overweight, middle-aged, white male, sitting up in bed, appears comfortable, nontoxic, appears comfortable, at bedside General Appearance: cooperative HEENT normocephalic, head/scalp atraumatic and hearing grossly normal bilaterally HEENT Narrative: Mouth is dry, Mallampati is 3, no thrush Eyes PERRL and EOMs intact bilaterally Neck no lymphadenopathy and supple Neck Narrative: Trachea midline, no thyroid enlargement Resp normal respiratory effort, no retractions, no use of accessory muscles and No clear to auscultation bilaterally Resp Narrative: Crackles at bases bilaterally that improved with deep breathing suspicious of atelectasis Auscultation: crackles GI normal to inspection, nondistended, normoactive bowel sounds, soft to palpation and non-tender GI Narrative: Ventral hernia noted Palpation: hernia Extremity no clubbing, cyanosis or edema Extremity Narrative: Pedal pulses are 2+ Neuro oriented x3, moves all extremities and no focal motor deficits Speech: speech normal Psych affect normal Psych Narrative: Eye contact is good and patient interacts appropriately Results Lab / Micro Data 11/19/23 21:15 11/19/23 21:15 Labs: Laboratory Results - last 24 hr 11/19/23 21:15: WBC 6.9, RBC 4.62, Hgb 15.1, Hct 44.0, MCV 95.2 H, MCH 32.7 H, MCHC 34.3, RDW Std Deviation 44.0 H, RDW Coeff of [place] 12.7, Plt Count 190, MPV 11.1, Immature Gran % (Auto) 0.700, Neut % (Auto) 65.9, Lymph % (Auto) 22.6, [place] % (Auto) 5.9, Eos % (Auto) 3.5, Baso % (Auto) 1.4 H, Absolute Neuts (auto) 4.5, Absolute Lymphs (auto) 1.56, Nucleated RBC % 0, Sodium 139, Potassium 3.8, Chloride 109 H, Carbon Dioxide 23.0, Anion Gap 7, BUN 9, Creatinine 1.26, Estim Creat Clear Calc 81.72, Est GFR (MDRD) Af Amer 78, Est GFR (MDRD) Non-Af 65, BUN/Creatinine Ratio 7.1 L, Glucose 121 H, Calcium 9.0, Total Bilirubin 0.60, AST 27, ALT 50, Alkaline Phosphatase 61, Troponin I High Sens < 3 L, Total Protein 7.2, Albumin 4.1, Globulin 3.1, Albumin/Globulin Ratio 1.3 11/19/23 22:30: Urine Color Yellow, Urine Clarity Clear, Urine pH 6.0, Ur Specific [place] 1.020, Urine Protein 15 H, Urine Glucose (UA) Normal, Urine Ketones Negative, Urine Occult Blood Negative, Urine Nitrite Negative, Urine Bilirubin Negative, Urine Urobilinogen 1 H, Ur Leukocyte Esterase Negative, Urine RBC 0 SEEN, Urine WBC 0 SEEN, Ur Squamous Epith Cells 0 SEEN, Urine Bacteria 0 SEEN, Urine Mucus 0 SEEN, Urine Opiates Screen NEGATIVE, Urine Methadone Screen NEGATIVE, Ur Barbiturates Screen NEGATIVE, Ur Phencyclidine Scrn NEGATIVE, Ur Amphetamines Screen NEGATIVE, MDMA (Ecstasy) Screen NEGATIVE, U Benzodiazepines Scrn NEGATIVE, Urine Cocaine Screen NEGATIVE, U Cannabinoids Screen POSITIVE H, Ur Drug Screen Comment , Ethyl Alcohol < 3.0 Imaging Radiology Impression Brain CT 11/19/23 22:13 IMPRESSION: Negative head/brain CT without intravenous contrast. Electronically Signed: Jack Almaguer DO at 23:30 EDT , Chest X-Ray 11/19/23 23:10 IMPRESSION: Bibasilar pulmonary opacities may be atelectasis or pneumonia. Electronically Signed: Jack Almaguer DO at 23:25 EDT , Assessment & Plan Assessment/Plan (1) Altered mental status: (2) Slurred speech: (3) Marijuana use: (4) Medication side effects: PLAN: Plan Altered mental status/slurred speech -Symptoms are inconsistent with stroke and more consistent with medication interaction/overdose -Patient does use medical marijuana regularly and is on his chronic dose -CT negative -EKG unremarkable -Will gently hydrate -hold home Duragesic patch as well as Seroquel and reassess tomorrow Hyperlipidemia -Continue home fenofibrate GERD -Continue home PPI BPH with obstruction -Continue home Flomax Major depressive disorder/WALT/PTSD -Hold home Seroquel this evening due to altered mentation being the etiology for admission -Continue home fluoxetine Chronic pain -Continue home buprenorphine due to altered mentation on presentation -As needed Tylenol available Tobacco abuse -Recommend cessation -14 mcg nicotine patch made available DVT prophylaxis -Low risk -Recommend early and frequent ambulation CODE STATUS -Full code Charges/Coding Visit Charges Inpatient E&M: 26011 Init Hosp L2
[2023-11-20 02:41] VITALS: BP 90/55; PULSE 73; RESP 18; TEMP 36.4; O2SAT 95
[2023-11-20] MEDS: Lactated Ringers 1,000 ML 125 ML IV (02:44)
[2023-11-20 02:45] VITALS: BMI 28.0
[2023-11-20 07:07] LABS: Absolute Lymphocyte Count 1.74 X10^3/uL (0.83-4.51); Absolute Neutrophil Count 3.8 X10^3/uL (2.0-7.7); Basophil# 0.13 X10^3/uL; Eosinophil# 0.33 X10^3/uL; Eosinophils% 5.1 % (0-5); Hematocrit 40.3 % (40-54); Hemoglobin 13.6 g/dL (13.0-16.5); Lymphocyte # 1.74 X10^3/ul (0.83-4.51); Lymphocyte % 26.8 % (19-41); Mean Corp Hgb Conc 33.7 g/dL (32-36); Mean Corpuscular Hgb 32.9 pg (27.0-32.0); Mean Corpuscular Volume 97.3 fL (80-94); Mean Platelet Vol. 10.8 fl (6.2-12.0); Monocyte# 0.45 X10^3/uL; Monocyte% 6.9 % (0-10); NRBC Flagged by Analyzer 0 % (0-5); Neutrophil # 3.81 X10^3/uL (2.7-7.7); Neutrophil % 58.6 % (47-70); Platelet Count 175 K/mm3 (150-450); RBC Distribution Width CV 12.7 % (11.6-14.6); RBC Distribution Width SD 45.4 fl (35.1-43.9); Red Blood Count 4.14 M/mm3 (4.6-6.2); White Blood Count 6.5 K/mm3 (4.4-11.0)
--- NOTE | 2023-11-20 07:25 | PCM.PN.HOSP ---
Reason for Visit Reason for Visit: Diagnoses Cannabis use, unspecified, uncomplicated (11/20/23) Altered mental status, unspecified (11/20/23) Slurred speech (11/20/23) Unspecified adverse effect of drug or medicament, initial encounter (11/20/23) Subjective Subjective Patient is a 48-year-old gentleman admitted with altered mental status Objective Data Objective Data Vital Signs: Vital Signs Temp Pulse Resp BP Pulse Ox O2 Del Method 97.5 F L 73 18 90/55 L 95 Room Air 11/20/23 02:41 11/20/23 02:41 11/20/23 02:41 11/20/23 02:41 11/20/23 02:41 11/20/23 03:32 Oxygen Delivery Method Room Air Weight: 90.7 kg Body Mass Index (BMI) 28.0 Intake & Output: Intake and Output for Last 24 Hours 11/18/23 11/19/23 11/20/23 23:59 23:59 23:59 Intake Total 1000 / 1000 Balance 1000 / 1000 Lab / Micro Data 11/20/23 06:39 11/20/23 06:39 Labs: Laboratory Results - last 24 hr 11/19/23 21:15: WBC 6.9, RBC 4.62, Hgb 15.1, Hct 44.0, MCV 95.2 H, MCH 32.7 H, MCHC 34.3, RDW Std Deviation 44.0 H, RDW Coeff of Rachel 12.7, Plt Count 190, MPV 11.1, Immature Gran % (Auto) 0.700, Neut % (Auto) 65.9, Lymph % (Auto) 22.6, [place] % (Auto) 5.9, Eos % (Auto) 3.5, Baso % (Auto) 1.4 H, Absolute Neuts (auto) 4.5, Absolute Lymphs (auto) 1.56, Nucleated RBC % 0, Sodium 139, Potassium 3.8, Chloride 109 H, Carbon Dioxide 23.0, Anion Gap 7, BUN 9, Creatinine 1.26, Estim Creat Clear Calc 81.72, Est GFR (MDRD) Af Amer 78, Est GFR (MDRD) Non-Af 65, BUN/Creatinine Ratio 7.1 L, Glucose 121 H, Calcium 9.0, Total Bilirubin 0.60, AST 27, ALT 50, Alkaline Phosphatase 61, Troponin I High Sens < 3 L, Total Protein 7.2, Albumin 4.1, Globulin 3.1, Albumin/Globulin Ratio 1.3 11/19/23 22:30: Urine Color Yellow, Urine Clarity Clear, Urine pH 6.0, Ur Specific [place] 1.020, Urine Protein 15 H, Urine Glucose (UA) Normal, Urine Ketones Negative, Urine Occult Blood Negative, Urine Nitrite Negative, Urine Bilirubin Negative, Urine Urobilinogen 1 H, Ur Leukocyte Esterase Negative, Urine RBC 0 SEEN, Urine WBC 0 SEEN, Ur Squamous Epith Cells 0 SEEN, Urine Bacteria 0 SEEN, Urine Mucus 0 SEEN, Urine Opiates Screen NEGATIVE, Urine Methadone Screen NEGATIVE, Ur Barbiturates Screen NEGATIVE, Ur Phencyclidine Scrn NEGATIVE, Ur Amphetamines Screen NEGATIVE, MDMA (Ecstasy) Screen NEGATIVE, U Benzodiazepines Scrn NEGATIVE, Urine Cocaine Screen NEGATIVE, U Cannabinoids Screen POSITIVE H, Ur Drug Screen Comment , Ethyl Alcohol < 3.0 11/20/23 06:39: WBC 6.5, RBC 4.14 L, Hgb 13.6, Hct 40.3, MCV 97.3 H, MCH 32.9 H, MCHC 33.7, RDW Std Deviation 45.4 H, RDW Coeff of Rachel 12.7, Plt Count 175, MPV 10.8, Immature Gran % (Auto) 0.600, Neut % (Auto) 58.6, Lymph % (Auto) 26.8, [place] % (Auto) 6.9, Eos % (Auto) 5.1 H, Baso % (Auto) 2.0 H, Absolute Neuts (auto) 3.8, Absolute Lymphs (auto) 1.74, Nucleated RBC % 0 Radiography Diagnostic Testing: Radiology Impression Brain CT 11/19/23 22:13 IMPRESSION: Negative head/brain CT without intravenous contrast. Electronically Signed: Jack Almaguer DO at 23:30 EDT , Chest X-Ray 11/19/23 23:10 IMPRESSION: Bibasilar pulmonary opacities may be atelectasis or pneumonia. Electronically Signed: Jcak Almaguer, at 23:25 EDT , Physical Exam Narrative GENERAL: cooperative HEENT: Atraumatic; normocephalic EYES; Anicteric, Normal Conjunctiva NECK; supple, normal thyroid, RESPIRATORY: Diminished to auscultation CARDIOVASCULAR: Regular S1 S2, GI: soft, normoactive bowel sounds, : No Renal angle tenderness; EXTREMITIES: No edema, no clubbing, MUSCULOSKELETAL: no muscle wasting NEURO: Awake; no lateralizing signs. SKIN: No Rash PSYCH; Flat affect Assessment & Plan Assessment/Plan (1) Altered mental status: (2) Slurred speech: (3) Marijuana use: (4) Medication side effects: PLAN: Plan Patient is a 48-year-old gentleman admitted with altered mental status 1. Acute toxic encephalopathy ? Thought to be secondary to accidental drug interaction/overdose. Patient was on Duragesic patch as well as quetiapine. Both of both suspected offending medications held monitored overnight with improvement in his symptoms 2. Hypokalemia -Corrected per protocol 3. Dyslipidemia ? Patient is on fenofibrate 4. GERD ? On PPI 5. BPH with lower urinary obstructive symptoms - Patient treated with tamsulosin 6. Major depressive disorder/WALT/PTSD -Seroquel was held patient is on fluoxetine continued 7. Chronic pain -Patient was on buprenorphine recently discontinued and started Duragesic patch which has since been discontinued patient to follow-up with us pain specialist for subsequent pain management 8. Tobacco dependence ? Counseled on cessation, offered nicotine patch for tobacco cravings
[2023-11-20 07:58] LABS: ALB/GLOB Ratio 1.4 RATIO (0.9-2.4); AST(SGOT) 17 U/L (15-37); Alanine Aminotransfer ALT/SGPT 41 U/L (16-61); Albumin, Serum 3.4 g/dL (3.2-5.0); Alkaline Phosphatase 48 U/L (45-117); Anion Gap 6 (5-15); BUN 9 mg/dL (7-18); BUN/Creat Ratio 7.8 RATIO (10-20); Calcium,Total 8.4 mg/dL (8.5-10.1); Chloride 111 mmol/L (98-107); Creatinine, Serum 1.16 mg/dL (0.70-1.30); EST Glomerular Filtration Rate 71 mL/min (>60); Est Glom Filt Rate - Afr Amer 86 mL/min (>60); Estimated Creatinine Clearance 87.25 ml/min; Globulin 2.5 g/dL (2.2-4.2); Glucose 83 mg/dL (74-106); Magnesium 2.2 mg/dL (1.6-2.6); Phosphorus 3.4 mg/dL (2.5-4.9); Potassium 3.4 mmol/L (3.5-5.1); Protein, Total 5.9 g/dL (6.4-8.2); Sodium Level 140 mmol/L (136-145)
--- NOTE | 2023-11-20 08:23 | PCM.DC.SUM ---
Providers Date of Admission: 11/20/23 Date of Discharge: 11/20/23 Primary Care Physician: Dr. Yovany Lawson MD Reason For Visit: ALTERED MENTAL STATUS Diagnosis Discharge Diagnosis (1) Altered mental status: Status: Acute Code(s): R41.82 - Altered mental status, unspecified (2) Slurred speech: Status: Acute Code(s): R47.81 - Slurred speech (3) Marijuana use: Status: Acute Code(s): F12.90 - Cannabis use, unspecified, uncomplicated (4) Medication side effects: Status: Acute Code(s): T88.7XXA - Unspecified adverse effect of drug or medicament, initial encounter Plan Patient is a 48-year-old gentleman admitted with altered mental status 1. Acute toxic encephalopathy ? Thought to be secondary to accidental drug interaction/overdose. Patient was on Duragesic patch as well as quetiapine. Both of both suspected offending medications held monitored overnight with improvement in his symptoms 2. Hypokalemia -Corrected per protocol 3. Dyslipidemia ? Patient is on fenofibrate 4. GERD ? On PPI 5. BPH with lower urinary obstructive symptoms - Patient treated with tamsulosin 6. Major depressive disorder/WALT/PTSD -Seroquel was held patient is on fluoxetine continued 7. Chronic pain -Patient was on buprenorphine recently discontinued and started Duragesic patch which has since been discontinued patient to follow-up with us pain specialist for subsequent pain management 8. Tobacco dependence ? Counseled on cessation, offered nicotine patch for tobacco cravings Medications at Discharge Home Medications acetaminophen 325 mg tablet 650 mg (2 x 325 mg) PO Q6H PRN PRN Pain 1-10 Or Fever>100.7 #0 tabs 11/20/23 fenofibrate 160 mg tablet 160 mg PO DAILY 11/20/23 fluoxetine 20 mg capsule 20 mg PO DAILY 11/20/23 omeprazole 40 mg capsule,delayed release 40 mg PO DAILY 11/20/23 ondansetron HCl 4 mg tablet 4 mg PO DAILY PRN nausea 11/20/23 quetiapine 100 mg tablet 100 mg PO QHS 11/20/23 quetiapine 25 mg tablet 25 mg PO QHS 11/20/23 tamsulosin 0.4 mg capsule 0.4 mg PO DAILY 11/20/23 Hospital Course Summary of Care Provided Minutes Spent on Discharge: 32 Weight / BMI Weight Weight: 90.7 kg Body Mass Index (BMI) 28.0 ABG / Lab / Microbiology Data 11/20/23 06:39 11/20/23 06:39 Laboratory: Laboratory Results - last 24 hr 11/19/23 21:15: WBC 6.9, RBC 4.62, Hgb 15.1, Hct 44.0, MCV 95.2 H, MCH 32.7 H, MCHC 34.3, RDW Std Deviation 44.0 H, RDW Coeff of Rachel 12.7, Plt Count 190, MPV 11.1, Immature Gran % (Auto) 0.700, Neut % (Auto) 65.9, Lymph % (Auto) 22.6, [place] % (Auto) 5.9, Eos % (Auto) 3.5, Baso % (Auto) 1.4 H, Absolute Neuts (auto) 4.5, Absolute Lymphs (auto) 1.56, Nucleated RBC % 0, Sodium 139, Potassium 3.8, Chloride 109 H, Carbon Dioxide 23.0, Anion Gap 7, BUN 9, Creatinine 1.26, Estim Creat Clear Calc 81.72, Est GFR (MDRD) Af Amer 78, Est GFR (MDRD) Non-Af 65, BUN/Creatinine Ratio 7.1 L, Glucose 121 H, Calcium 9.0, Total Bilirubin 0.60, AST 27, ALT 50, Alkaline Phosphatase 61, Troponin I High Sens < 3 L, Total Protein 7.2, Albumin 4.1, Globulin 3.1, Albumin/Globulin Ratio 1.3 11/19/23 22:30: Urine Color Yellow, Urine Clarity Clear, Urine pH 6.0, Ur Specific [place] 1.020, Urine Protein 15 H, Urine Glucose (UA) Normal, Urine Ketones Negative, Urine Occult Blood Negative, Urine Nitrite Negative, Urine Bilirubin Negative, Urine Urobilinogen 1 H, Ur Leukocyte Esterase Negative, Urine RBC 0 SEEN, Urine WBC 0 SEEN, Ur Squamous Epith Cells 0 SEEN, Urine Bacteria 0 SEEN, Urine Mucus 0 SEEN, Urine Opiates Screen NEGATIVE, Urine Methadone Screen NEGATIVE, Ur Barbiturates Screen NEGATIVE, Ur Phencyclidine Scrn NEGATIVE, Ur Amphetamines Screen NEGATIVE, MDMA (Ecstasy) Screen NEGATIVE, U Benzodiazepines Scrn NEGATIVE, Urine Cocaine Screen NEGATIVE, U Cannabinoids Screen POSITIVE H, Ur Drug Screen Comment , Ethyl Alcohol < 3.0 11/20/23 06:39: WBC 6.5, RBC 4.14 L, Hgb 13.6, Hct 40.3, MCV 97.3 H, MCH 32.9 H, MCHC 33.7, RDW Std Deviation 45.4 H, RDW Coeff of Rachel 12.7, Plt Count 175, MPV 10.8, Immature Gran % (Auto) 0.600, Neut % (Auto) 58.6, Lymph % (Auto) 26.8, [place] % (Auto) 6.9, Eos % (Auto) 5.1 H, Baso % (Auto) 2.0 H, Absolute Neuts (auto) 3.8, Absolute Lymphs (auto) 1.74, Nucleated RBC % 0, Sodium 140, Potassium 3.4 L, Chloride 111 H, Carbon Dioxide 23.0, Anion Gap 6, BUN 9, Creatinine 1.16, Estim Creat Clear Calc 87.25, Est GFR (MDRD) Af Amer 86, Est GFR (MDRD) Non-Af 71, BUN/Creatinine Ratio 7.8 L, Glucose 83, Calcium 8.4 L, Phosphorus 3.4, Magnesium 2.2, Total Bilirubin 0.60, AST 17, ALT 41, Alkaline Phosphatase 48, Total Protein 5.9 L, Albumin 3.4, Globulin 2.5, Albumin/Globulin Ratio 1.4, TSH 1.420 Radiography Diagnostic Testing: Radiology Impression Brain CT 11/19/23 22:13 IMPRESSION: Negative head/brain CT without intravenous contrast. Electronically Signed: Jack Almaguer DO at 23:30 EDT , Chest X-Ray 11/19/23 23:10 IMPRESSION: Bibasilar pulmonary opacities may be atelectasis or pneumonia. Electronically Signed: Jack Almaguer DO at 23:25 EDT , D/C Instructions Discharge Diet: No restrictions Discharge Activity: Return to Normal Activity Call your doctor if you observe: Fever of 101 or Higher, Shortness of breath, Fainting spells and Chest pain Meaningful Use Info Meaningful Use Meaningful Use Diagnoses (Choose all that apply): None applicable Ischemic Stroke Statin Dosing Therapy Reference: STATIN DOSE THERAPY REFERENCE: * Patients > 75 years receive moderate or high dose statin therapy. * Patients 75 years or YOUNGER should receive HIGH intensity statin dose unless contraindicated. You will be required to document reason for non-treatment if statin daily dose does not meet guidelines. HIGH DOSE STATIN THERAPY DAILY Atorvastatin > than or = to 40 mg Rosuvastatin > than or = to 20 mg Amlodipine + Atorvastatin > than or = to 2.5/40 mg Ezetimibe + Simvastatin 10/80 mg Simvastatin 80mg Discharge Plan Admission Admit Date/Time: 11/20/23 01:00 Attending Provider: Melvin Ellsworth Primary Care Provider: Yovany Lawson Consulting Providers: Rachael Velasco Discharge Orders/Prescriptions Prescriptions: New acetaminophen 325 mg Tablet 650 mg PO Q6H PRN PRN (Reason: Pain 1-10 Or Fever>100.7) Qty: 0 0RF Continued omeprazole 40 mg capsule,delayed release(DR/EC) 40 mg PO DAILY fluoxetine 20 mg capsule 20 mg PO DAILY fenofibrate 160 mg tablet 160 mg PO DAILY ondansetron HCl 4 mg tablet 4 mg PO DAILY PRN (Reason: nausea) quetiapine 25 mg tablet 25 mg PO QHS quetiapine 100 mg tablet 100 mg PO QHS tamsulosin 0.4 mg capsule 0.4 mg PO DAILY Discontinued buprenorphine [Butrans] 5 mcg/hour patch weekly 1 patch topical QWEEK Rx Instructions: mondays Referrals / Follow Up: Yovany Lawson MD [Primary Care Provider] - Within 1 Week Disposition Disposition (needs filled in before D/C Order can be placed): Home, Self Care Charges/Coding Visit Charges Inpatient E&M: 32448 Disch Hosp >30min
[2023-11-20] MEDS: Pantoprazole Sodium 40 MG Tablet PO (09:32)
[2023-11-20] MEDS: Fenofibrate 145 MG Tablet PO (09:32)
[2023-11-20] MEDS: Potassium Chloride Oral Tablet 20 MEQ 40 MEQ PO (09:32)
[2023-11-20] MEDS: FLUoxetine 20 MG Capsule PO (09:32)
[2023-11-20] MEDS: Tamsulosin HCl 0.4 MG Capsule PO (09:33)
[2023-11-20 09:39] VITALS: BP 109/72; PULSE 77; RESP 18; TEMP 36.6; O2SAT 95
--- NOTE | 2023-11-20 09:55 | CASEMGMT ---
MARISA OTT NOTE: Pt being discharged. MARISA OTT to room. Pt resting in bed. Introduced self and role. Pt states lives w/his significant other, Michela, their 4-yr-old son and Edith's mom and dad. He states he is mostly independent w/ADL's, but Michela does assist at times/when needed when he is having back pain, stating he has 3 herniated areas in his back. He uses a cane @ baseline. Michela does most IADL's. Pt states [facility] [place] [facility] every and and plan is to go total of 8 wks. He states he has cx'd his appt for today and will resume next week. He feels safe to discharge home and denies having any discharge needs/concerns. He does not feel he needs PT/OT to evaluate him @ [facility] prior to discharge. yLnsey SORIANON MARISA OTT
== END 2023-11-20 13:00 | disposition home or self-care (01) ==
LOC: ED 11-20 01:02 → MS3 11-20 01:44
PROVIDERS: Admitting Provider Internal Medicine; Emergency Provider Emergency Medicine; PCP Family Medicine; Visit Provider Internal Medicine
DX: G92.8 Other toxic encephalopathy (principal); R47.81 Slurred speech; E87.6 Hypokalemia; F17.210 Nicotine dependence, cigarettes, uncomplicated; R55 Syncope and collapse; G89.29 Other chronic pain; E86.0 Dehydration; E78.5 Hyperlipidemia, unspecified; K21.9 Gastro-esophageal reflux disease without esophagitis; N40.1 Benign prostatic hyperplasia with lower urinary tract symptoms; N13.8 Other obstructive and reflux uropathy; T40.415A Adverse effect of fentanyl or fentanyl analogs, initial encounter; T43.595A Adverse effect of other antipsychotics and neuroleptics, initial encounter; F41.1 Generalized anxiety disorder; F32.9 Major depressive disorder, single episode, unspecified; F43.10 Post-traumatic stress disorder, unspecified; Z79.899 Other long term (current) drug therapy
CPT/HCPCS: 36415; 70450; 71045; 80053; 80307; 81001; 82077; 83735; 84100; 84443; 84484; 85025; 93005; 96360; 96361; 99221; 99284; J7030; J7120; G0378

== ENCOUNTER 2023-11-29 19:12 | Emergency (ER) | payer MEDICARE, MEDICAID, SELFPAY ==
[2023-11-29 19:13] VITALS: BP 135/90; PULSE 92; RESP 16; TEMP 36.8; O2SAT 97
--- NOTE | 2023-11-29 19:50 | EDS_ITS ---
HPI History of Present Illness Chief Complaint: Dizziness Detail of Chief Complaint: I do not feel normal Informant: patient Onset/Context/Timing Onset: Days Context: Gradual Onset Timing: Continuous Current Severity: Mild Maximum Severity: Mild Narrative Narrative: 48-year-old male said he has recently been changing his depression meds. Says he had dizziness. And that he does not feel right. He was seen last week and admitted overnight they did not find a specific cause of his symptoms. He denies any dysuria. No fever. No vomiting or diarrhea. Prior similar symptoms: Yes Recent Illness/Hospitalization: Yes PFSH PFS Medical History Hemorrhoids Major depressive disorder Generalized anxiety disorder PTSD (post-traumatic stress disorder) History of open sigmoidectomy Herniated disc Diverticulitis Home Medications ?Medication ?Instructions ?Recorded ?Last Taken ?Type acetaminophen 325 mg tablet 650 mg (2 x 325 mg) PO Q6H PRN PRN 11/20/23 Unknown Rx Pain 1-10 Or Fever>100.7 #0 tabs fenofibrate 160 mg tablet 160 mg PO DAILY 11/20/23 Unknown History fluoxetine 20 mg capsule 20 mg PO DAILY 11/20/23 Unknown History omeprazole 40 mg capsule,delayed 40 mg PO DAILY 11/20/23 Unknown History release ondansetron HCl 4 mg tablet 4 mg PO DAILY PRN nausea 11/20/23 Unknown History quetiapine 100 mg tablet 100 mg PO QHS 11/20/23 Unknown History quetiapine 25 mg tablet 25 mg PO QHS 11/20/23 Unknown History tamsulosin 0.4 mg capsule 0.4 mg PO DAILY 11/20/23 Unknown History Allergy/AdvReac Type Severity Reaction Status Date / Time No Known Allergies Allergy Verified 11/29/23 19:16 Surgical History H/O abdominal surgery History of cholecystectomy Social History household members: family 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 Constitutional Constitutional ED: Denies chills or fever(s) Eyes Eyes: Denies blurry vision ENT ENT ED: Denies ear pain Cardiovascular Cardiovascular: Denies chest pain Respiratory/Chest Respiratory/Chest: Denies cough or dyspnea Gastrointestinal Gastrointestinal: Denies abdominal pain Genitourinary Genitourinary ED: Denies dysuria Musculoskeletal Musculoskeletal: Denies arthralgias Integumentary Denies abscess Neurologic Neurologic: Denies headache(s) Psychiatric Psychiatric: Reports anxiety Endocrine Endocrinology: Denies cold intolerance Hematologic/Lymphatic Hematologic/Lymphatic: Reports none Allergic/Immunologic Allergic/Immunologic ED: Denies mouth swelling, tongue swelling or urticaria EXAM Physical Exam Narrative Exam Narrative: Well-appearing middle-age male. Vital signs stable afebrile. Pulse ox 97% on room air no hypoxia. No distress. H EENT exam unremarkable. Neck nontender. Lungs clear to auscultation bilaterally. Heart regular rhythm rate about 90 no murmur. Chest wall ribs nontender. Abdomen soft nontender. Moving all 4 extremities. 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 Dorsi plantarflexion intact. Nontender no edema. Back nontender. Neurologically is awake alert. Answering questions following commands. No focal motor deficits. Const Vital Signs: 11/29/23 19:13 11/29/23 19:40 11/29/23 19:41 Temperature 98.2 F Temperature Source Temporal Pulse Rate 92 Respiratory Rate 16 Respiratory Effort Normal Normal Respiratory Pattern Normal Normal Blood Pressure 135/90 H Blood Pressure Mean 105 Pulse Ox 97 Oxygen Delivery Method Room Air Positive well nourished and well developed; Negative for cachectic, contractures or unkempt General Appearance ED: well developed and NAD; Negative for unkempt, cachectic, contractures, cyanotic, diaphoretic or pallor Nutritional Appearance: Negative for cachectic HEENT Reports moist mucous membranes Negative for trauma or tenderness Eyes PERRL and EOMs intact bilaterally General Eye ED: Negative for pale conjunctiva or scleral icterus Neck no lymphadenopathy, supple and no JVD General: Negative for tenderness Lymph Lymphatic: Negative for other Chest Wall inspection of chest normal and palpation of chest normal Chest: Negative for other Resp normal respiratory effort and clear to auscultation bilaterally Effort and Inspection: Negative for retractions Auscultation: Negative for rales, rhonchi, wheezes or diminished lung sounds Cardio regular rate, regular rhythm, S1 normal heart sound, S2 normal heart sound and no murmurs GI normal to inspection, nondistended, normoactive bowel sounds, non-tender, non- distended and no masses Auscultation: normoactive bowel sounds Palpation: soft; Negative for tender or guarding Back/Spine no CVA tenderness General Back: Negative for CVA tenderness Cervical Spine: Negative for cervical spine tenderness Thoracic Spine / Upper Back: Negative for thoracic spinal tenderness or paraspinal muscle tenderness Lumbar Spine / Lower Back: Negative for lumbar spinal tenderness Extremity normal to inspection General Extremety ED: Negative for edema or tenderness General Extremity: Negative for edema Neuro oriented x3 and CN's II-XII intact bilaterally Sensorium / Orientation: alert; Negative for orientation impaired, lethargic or stuporous Motor Exam: strength 5/5 throughout Psych mental status grossly normal Appearance: Negative for unkempt Attitude: No agitated Mood & Affect: anxious; Negative for depressed or tearful Skin no rashes or lesions noted, no wounds and skin turgor normal General Skin Exam: elasticity normal; Negative for jaundice or pallor Lesions: No lesion noted Rashes: No rashes noted Trauma: Negative for abrasion Wounds: Negative for wounds noted MDM MDM MDM Narrative Medical decision making narrative: Middle-age male with anxiety who says I just do not feel right. His exam is benign. He was admitted to the hospital for similar episode a week ago. Screening labs of the obtained. I do not think he needs any imaging. If his labs are unremarkable be discharged to home. Repeat exam unchanged at 8:48 PM. I discussed the patient his normal lab results today. I compared to the recent labs he also recently had an CT of his brain and chest x-ray which were unremarkable be discharged home with outpatient follow-up. Lab Data Attestation: I reviewed the patient's lab results. Lab results narrative: CBC normal. White count of 9. H&H 15 and 45. Platelets 234. Electrolytes show sodium 140. Potassium 3.4. Gap 9. Normal BUN and creatinine of 11 and 1. Glucose 140. Liver enzymes normal. Labs: Laboratory Results - last 24 hr 11/29/23 19:34 WBC 9.9 RBC 4.82 Hgb 15.7 Hct 45.2 MCV 93.8 MCH 32.6 H MCHC 34.7 RDW Std Deviation 43.6 RDW Coeff of Rachel 12.7 Plt Count 234 MPV 11.0 Immature Gran % (Auto) 0.500 Neut % (Auto) 66.2 Lymph % (Auto) 23.0 [place] % (Auto) 5.4 Eos % (Auto) 3.5 Baso % (Auto) 1.4 H Absolute Neuts (auto) 6.5 Absolute Lymphs (auto) 2.27 Nucleated RBC % 0 Sodium 140 Potassium 3.4 L Chloride 109 H Carbon Dioxide 22.0 Anion Gap 9 BUN 11 Creatinine 1.13 Est GFR (MDRD) Af Amer 89 Est GFR (MDRD) Non-Af 73 BUN/Creatinine Ratio 9.7 L Glucose 140 H Calcium 10.1 Total Bilirubin 0.90 AST 21 ALT 50 Alkaline Phosphatase 59 Total Protein 7.2 Albumin 4.2 Globulin 3.0 Albumin/Globulin Ratio 1.4 Discharge Plan Triage Chief Complaint: Dizziness ED Provider: Huang Medina Dx/Rx/DC Orders Prescriptions: No Action omeprazole 40 mg capsule,delayed release(DR/EC) 40 mg PO DAILY fluoxetine 20 mg capsule 20 mg PO DAILY fenofibrate 160 mg tablet 160 mg PO DAILY ondansetron HCl 4 mg tablet 4 mg PO DAILY PRN (Reason: nausea) quetiapine 25 mg tablet 25 mg PO QHS quetiapine 100 mg tablet 100 mg PO QHS tamsulosin 0.4 mg capsule 0.4 mg PO DAILY acetaminophen 325 mg Tablet 650 mg PO Q6H PRN PRN (Reason: Pain 1-10 Or Fever>100.7) Qty: 0 0RF Primary Care Provider: Yovany Lawson Referrals: Yovany Lawson MD [[facility]] - Print Language: Greek
[2023-11-29 19:57] LABS: Absolute Lymphocyte Count 2.27 X10^3/uL (0.83-4.51); Absolute Neutrophil Count 6.5 X10^3/uL (2.0-7.7); Basophil# 0.14 X10^3/uL; Basophil% 1.4 % (0-1); Eosinophil# 0.34 X10^3/uL; Eosinophils% 3.5 % (0-5); Hematocrit 45.2 % (40-54); Hemoglobin 15.7 g/dL (13.0-16.5); Lymphocyte # 2.27 X10^3/ul (0.83-4.51); Mean Corp Hgb Conc 34.7 g/dL (32-36); Mean Corpuscular Hgb 32.6 pg (27.0-32.0); Mean Corpuscular Volume 93.8 fL (80-94); Monocyte# 0.53 X10^3/uL; Monocyte% 5.4 % (0-10); NRBC Flagged by Analyzer 0 % (0-5); Neutrophil # 6.52 X10^3/uL (2.7-7.7); Neutrophil % 66.2 % (47-70); Platelet Count 234 K/mm3 (150-450); RBC Distribution Width CV 12.7 % (11.6-14.6); RBC Distribution Width SD 43.6 fl (35.1-43.9); Red Blood Count 4.82 M/mm3 (4.6-6.2); White Blood Count 9.9 K/mm3 (4.4-11.0)
[2023-11-29 20:15] LABS: ALB/GLOB Ratio 1.4 RATIO (0.9-2.4); AST(SGOT) 21 U/L (15-37); Alanine Aminotransfer ALT/SGPT 50 U/L (16-61); Albumin, Serum 4.2 g/dL (3.2-5.0); Alkaline Phosphatase 59 U/L (45-117); Anion Gap 9 (5-15); BUN 11 mg/dL (7-18); BUN/Creat Ratio 9.7 RATIO (10-20); Calcium,Total 10.1 mg/dL (8.5-10.1); Chloride 109 mmol/L (98-107); Creatinine, Serum 1.13 mg/dL (0.70-1.30); EST Glomerular Filtration Rate 73 mL/min (>60); Est Glom Filt Rate - Afr Amer 89 mL/min (>60); Glucose 140 mg/dL (74-106); Potassium 3.4 mmol/L (3.5-5.1); Protein, Total 7.2 g/dL (6.4-8.2); Sodium Level 140 mmol/L (136-145)
[2023-11-29 21:02] VITALS: BP 133/84; PULSE 77; RESP 18; TEMP 36.8; O2SAT 99
== END 2023-11-29 21:08 | disposition home or self-care (01) ==
PROVIDERS: Emergency Provider Emergency Medicine; PCP Family Medicine; Visit Provider Emergency Medicine
DX: R42 Dizziness and giddiness (principal); F32.9 Major depressive disorder, single episode, unspecified; Z90.49 Acquired absence of other specified parts of digestive tract
CPT/HCPCS: 80053; 85025; 99285; A4216